=== PATIENT | male | born 1955 | race Caucasian/White ===

== ENCOUNTER 2020-11-14 16:46 | Emergency (ER) | payer MEDICARE, OTHER, SELFPAY ==
[2020-11-14 16:58] VITALS: BP 157/71; PULSE 72; RESP 18; TEMP 36.6; O2SAT 98
--- NOTE | 2020-11-14 16:59 | ED.URI ---
HPI - URI/Sore Throat General Chief Complaint: Upper Respiratory Infection Stated Complaint: Sore Throat,Diarrhea,Upset Stomach Time Seen by Provider: 11/14/20 17:00 Source: patient Mode of arrival: ambulatory Limitations: no limitations History of Present Illness HPI Narrative: Boyd Kendall is a 65 yo male with a PMH of hypertension, high cholesterol, depression and anxiety. GERD, Diabetes, who [facility] because of abdominal upset, diarrhea, sore throat this been lasting for a month he also stated that his grandchildren just were quarantine out of school because of Covid and they tested negative but he is not sure what the PCR rapid and is concerned about his cluster symptoms. Patient takes a lot of medication for variety of illnesses, including hypertension high cholesterol depression anxiety GERD diabetes, he takes his medication regularly but must establish with new PCP has he moved here recently. Patient completed the Moderna Covid vaccine; he is concerned because his grandchildren were quarantined after exposure to Covid at school but they have tested negative and he was concerned about having Covid Related Data Home Medications Medication Instructions Recorded Confirmed citalopram 20 mg PO DAILY 11/14/20 11/14/20 fenofibrate 160 mg PO DAILY 11/14/20 11/14/20 lansoprazole 303 mg PO DAILY 11/14/20 11/14/20 losartan 100 mg PO DAILY 11/14/20 11/14/20 niacin [Niaspan Extended-Release] 750 mg PO DAILY 11/14/20 11/14/20 potassium citrate 15 meq PO DAILY 11/14/20 11/14/20 rosuvastatin 10 mg PO DAILY 11/14/20 11/14/20 saxagliptin-metformin [Kombiglyze 1 tablet PO DAILY 11/14/20 11/14/20 XR] triamcinolone acetonide 1 applic DENTAL AC 11/14/20 11/14/20 Allergies Allergy/AdvReac Type Severity Reaction Status Date / Time No Known Allergies Allergy Verified 11/14/20 17:03 Review of Systems Review of Systems: CONSTITUTIONAL: Denies fever, chills, sweats. EYES: Denies visual changes, redness, discharge. ENT: Denies rhinorrhea, congestion, sore throat on and off for a month, otalgia. CARDIOVASCULAR: Denies chest pain, palpitations, edema. RESPIRATORY: Denies dyspnea, wheezing, cough GASTROINTESTINAL: Has abdominal pain, nausea, vomiting, has some diarrhea. Ongoing for a month GENITOURINARY: Denies dysuria, hematuria, abnormal discharge SKIN: Denies rash or itching. NEUROLOGIC: Denies numbness, or focal weakness. PSYCHIATRIC: Denies anxiety or depression. [facility] Past Medical History Medical History Diabetes DISH (diffuse idiopathic skeletal hyperostosis) GERD (gastroesophageal reflux disease) High cholesterol Hypertension Family History Family History (Updated 11/14/20 @ 17:24 by Sheila Valentin CNP) Other Hypertension Social History Social History (Updated 11/14/20 @ 17:24 by Sheila Valentin CNP) Smoking status: Former smoker Alcohol intake: current Comments At time of signature, I agree with nursing past medical, surgical, social and family history. There is no relevant family history pertinent to the presenting complaint. Exam Narrative: GENERAL: This is a well-nourished, well-developed patient, in no distress. Frail HEAD: normocephalic, atraumatic. EYES: Sclera clear/white. Vision is grossly intact. EARS: External ears normal, auditory canals clear and without drainage, TMs normal without perforation. Hearing grossly intact. NOSE: External nose normal without nasal discharge, nares without redness, no rhinorrhea. THROAT: Mucous membranes moist, posterior pharynx mild erythema NECK: Neck supple, non-tender CARDIOVASCULAR: Regular rate and rhythm without murmurs, gallops, or rubs. RESPIRATORY: Clear to auscultation. Breath sounds equal bilaterally. No wheezes, rales, or rhonchi. GASTROINTESTINAL: Abdomen soft, SKIN: warm, intact with no suspicious lesions or rash, good texture and turgor. NEURO: awake, alert, and oriented to pe
[2020-11-16 03:45] LABS: SARS-CoV-2 RNA PCR Negative
== END 2020-11-14 17:50 | disposition home or self-care (01) ==
PROVIDERS: Emergency Provider Nurse Practitioner
DX: J06.9 Acute upper respiratory infection, unspecified (principal); Z20.822 Contact with and (suspected) exposure to COVID-19; E11.9 Type 2 diabetes mellitus without complications; K21.9 Gastro-esophageal reflux disease without esophagitis; E78.00 Pure hypercholesterolemia, unspecified; I10 Essential (primary) hypertension; Z87.891 Personal history of nicotine dependence; M48.10 Ankylosing hyperostosis [Forestier], site unspecified; F41.9 Anxiety disorder, unspecified; F32.9 Major depressive disorder, single episode, unspecified
CPT/HCPCS: 87081; 87426; 87880; 99213; C9803; G0463; U0003; U0005

== ENCOUNTER 2021-10-30 22:53 | Emergency (ER) | payer MEDICARE, OTHER, SELFPAY ==
--- NOTE | ~2021-10-30 | CT_ITS ---
EXAMINATION: CT brain wo con DATE: 10/31/2021 00:27 INDICATION: Head injury. TECHNIQUE: Computed tomography (CT) of the head was performed without intravenous contrast. The mA wa s adjusted according to patient size. Iterative reconstruction technique was employed. The dose-lengt h product was 681.00 mGy-cm. COMPARISON: None FINDINGS: There is no intracranial hemorrhage, acute infarction, or abnormal intracranial mass lesion . The ventricles are normal in size. The orbits are normal. There is mucosal thickening in the parana cipriano sinuses. The mastoid air cells are normal. There are changes of posterior fusion procedure involv ing the skull base of cervical spine. The orbits are normal. IMPRESSION: 1. Normal brain. Reviewed, dictated and finalized at location A. IMPRESSION: 1. Normal brain.
--- NOTE | ~2021-10-30 | CT_ITS ---
EXAMINATION: CT cervical spine wo con DATE: 10/31/2021 00:28 INDICATION: Neck pain. Neck injury. TECHNIQUE: Computed tomography (CT) of the cervical spine was performed without intravenous contrast. Automated exposure control and iterative reconstruction technique were employed. The dose-length pro duct was 469.44 mGy-cm. COMPARISON: None FINDINGS: There is 7 degrees dextrocurvature of cervical spine. There are changes of anterior fusion procedure from C4 to C7 with discectomies and healed interbody bone graft. There is an anterior plate and screws from C5 to C7. There are bulky bridging anterior osteophytes from C2 to C4. There are stella nges of posterior fusion procedure from the skull base to C6 with pedicle screws in C2 and lateral ma ss screws in C3-C6. There is ankylosis of the C0-C1 facet joints and anterior atlantoaxial joint. The re are C3 and C4 laminectomies. Intervertebral disc heights are normal. There is intermittent ossific ation of posterior longitudinal ligament in cervical spine. The following disc levels are specificall y discussed: C2-C3: There is mild left uncovertebral joint hypertrophy. There is severe right and moderate left fa cet joint hypertrophy. There is mild bilateral neural foraminal stenosis. There is mild central canal stenosis with posterior decompression. C3-C4: There is mild left uncovertebral joint hypertrophy. There is moderate bilateral facet joint hy pertrophy. There is mild bilateral neural foraminal stenosis. There is mild central canal stenosis wi th posterior decompression. C4-C5: There is mild bilateral uncovertebral joint hypertrophy. There is mild right and moderate left facet joint hypertrophy. There is mild left neural foraminal stenosis. There is no central canal alex nosis. C5-C6: There is mild bilateral uncovertebral joint hypertrophy. There is mild bilateral facet joint h ypertrophy. There is no neural foraminal stenosis. There is mild central canal stenosis. C6-C7: There is mild bilateral uncovertebral joint hypertrophy. There is mild bilateral facet joint h ypertrophy. There is no neural foraminal stenosis. There is mild central canal stenosis. C7-T1: There is mild bilateral uncovertebral joint osteoarthritis. There is moderate bilateral facet joint osteoarthritis. There is mild bilateral neural foraminal stenosis. There is mild central canal stenosis. IMPRESSION: 1. No fracture. 2. Anterior and posterior fusion from the skull base to C7. 3. Mild cervical spondylosis. Reviewed, dictated and finalized at location A.
--- NOTE | ~2021-10-30 | CT_ITS ---
EXAMINATION: CT thoracic spine wo con DATE: 10/31/2021 00:28 INDICATION: Back pain. Fall. TECHNIQUE: Computed tomography (CT) of the thoracic spine was performed without intravenous contrast. Automated exposure control and iterative reconstruction technique were employed. The dose-length pro duct was 1008.40 mGy-cm. COMPARISON: None FINDINGS: There is 3 degrees levocurvature of cervicothoracic spine. Vertebral body heights are donald l. There is mildly decreased disc height at multiple levels. There are bridging endplate osteophytes from T2 to L1, consistent with diffuse idiopathic skeletal hyperostosis (DISH). There is multilevel m ild facet joint osteoarthritis. On the right, there is mild neural foraminal stenosis at T2-T3, T8-T9 , and T11-T12. On the left, there is mild neural foraminal stenosis at T3-T4 and T5-T6 and moderate n eural foraminal stenosis at T11-T12. There is no central canal stenosis. IMPRESSION: 1. No fracture. 2. DISH. 3. Moderate left neural foraminal stenosis at T11-T12. Otherwise mild thoracic spondylosis. Reviewed, dictated and finalized at location A.
[2021-10-30 22:54] VITALS: BP 144/62; PULSE 74; RESP 16; TEMP 36.3; O2SAT 99
--- NOTE | 2021-10-31 00:10 | ED.FALL ---
HPI - Fall General Chief Complaint: Fall Stated Complaint: FALL/ BACK PAIN. Time Seen by Provider: 10/30/21 23:35 History of Present Illness HPI Narrative: 66-year-old male history of multiple neck surgeries presents emergency room complains of a head and neck pain. Patient states that he was in a rocking chair when he rocked back too far and falling out of his chair striking the back of his head and his neck. Injury occurred at approximately 2:00 this afternoon. Patient states he took a tramadol and a Flexeril at that time which alleviated his pain. Patient states that later this evening the pain returned and was worse when he was trying to move his neck. Patient denies positive LOC, altered mental status. Denies any anticoagulation therapy. Related Data Home Medications Medication Instructions Recorded Confirmed citalopram 20 mg tablet 20 mg PO DAILY 11/14/20 11/14/20 fenofibrate 160 mg tablet 160 mg PO DAILY 11/14/20 11/14/20 lansoprazole 30 mg capsule,delayed 303 mg PO DAILY 11/14/20 11/14/20 release losartan 100 mg tablet 100 mg PO DAILY 11/14/20 11/14/20 niacin 750 mg tablet,extended 750 mg PO DAILY 11/14/20 11/14/20 release 24 hr (Niaspan) potassium citrate 15 mEq (1,620 15 meq PO DAILY 11/14/20 11/14/20 mg) tablet,extended release rosuvastatin 10 mg tablet 10 mg PO DAILY 11/14/20 11/14/20 saxagliptin 5 mg-metformin ER 1 tablet PO DAILY 11/14/20 11/14/20 1,000 mg tablet,extend release 24hr mp (Kombiglyze XR) triamcinolone acetonide 0.1 % 1 applic dental AC 11/14/20 11/14/20 dental paste Allergies Allergy/AdvReac Type Severity Reaction Status Date / Time No Known Allergies Allergy Verified 10/31/21 00:49 Review of Systems Review of Systems: CONSTITUTIONAL: Denies fever, chills, or sweats. EYES: Denies visual changes, redness, or discharge. ENT: Denies rhinorrhea, congestion, sore throat, or otalgia. CARDIOVASCULAR: Denies chest pain, palpitations, or edema. RESPIRATORY: Denies cough or dyspnea. GASTROINTESTINAL: Denies abdominal pain, nausea, vomiting, or diarrhea. GENITOURINARY: Denies dysuria or hematuria. SKIN: Denies rash or itching. MUSCULOSKELETAL: Reports neck and mid thoracic back pain NEUROLOGIC: Reports headache PSYCHIATRIC: Denies anxiety or depression. [facility] Past Medical History Medical History Diabetes DISH (diffuse idiopathic skeletal hyperostosis) GERD (gastroesophageal reflux disease) High cholesterol Hypertension Family History Family History Other Hypertension Social History Social History Smoking status: Former smoker Alcohol intake: current Exam Narrative: GENERAL: Well-appearing, well-nourished, no physical limitations, and in no acute distress. HEAD: Normocephalic, atraumatic. EYES: Conjunctivae normal, PERRLA and EOMI. NECK: Supple. No adenopathy or masses. CHEST: Clear to auscultation. No respiratory distress. No wheezes rales or rhonchi. No tenderness. HEART: Regular rate and rhythm. No murmur heard. Normal peripheral pulses. BACK: Midline cervical and thoracic tenderness, no step-offs, no bony abnormality; c-collar in place EXTREMITIES: Normal range of motion. No edema. No clubbing or cyanosis SKIN: Warm, dry, no rash. No noted wounds NEURO: No focal deficits. Alert and oriented x3. MAEW. CN's II-XI intact bilaterally. strength BUE 5/5, no weakness, no parasthesias PSYCH: Cooperative. Normal mood and affect. Course Course Emergency Course: 0145: c-collar cleared. Patient reports discomfort, but with some improvement, with rotation and lateral bend of c-spine. Vital Signs Vital signs: Vital Signs Temperature 36.3 C L 10/30/21 22:54 Pulse Rate 74 10/30/21 22:54 Respiratory Rate 16 10/30/21 22:54 Blood Pressure 144/62 H 10/30/21 22:54 Pulse Oximetry 99 08
[2021-10-31 00:47] VITALS: BP 128/76; PULSE 66; RESP 17; O2SAT 96
[2021-10-31] MEDS: CYCLOBENZAPRINE HCL 10 MG TABLET PO (01:48)
== END 2021-10-31 01:56 | disposition home or self-care (01) ==
PROVIDERS: Emergency Provider Nurse Practitioner Family
DX: S09.90XA Unspecified injury of head, initial encounter (principal); S16.1XXA Strain of muscle, fascia and tendon at neck level, initial encounter; S29.012A Strain of muscle and tendon of back wall of thorax, initial encounter; W07.XXXA Fall from chair, initial encounter; E11.9 Type 2 diabetes mellitus without complications; I10 Essential (primary) hypertension; E78.00 Pure hypercholesterolemia, unspecified; K21.9 Gastro-esophageal reflux disease without esophagitis; M48.10 Ankylosing hyperostosis [Forestier], site unspecified; Z87.891 Personal history of nicotine dependence; Z79.84 Long term (current) use of oral hypoglycemic drugs
CPT/HCPCS: 70450; 72125; 72128; 99284; A9270; L0140

== ENCOUNTER 2023-01-20 10:22 | Emergency (ER) | payer MEDICARE, OTHER, SELFPAY ==
--- NOTE | ~2023-01-20 | XR_ITS ---
EXAMINATION: XR chest 2V DATE: 01/20/2023 10:47 INDICATION: Cough 2 weeks post COVID TECHNIQUE: PA and lateral views of the chest were obtained. COMPARISON: None FINDINGS: Calcified nodule in the lateral left lower lung zone consistent with old granulomatous disease. No ot her airspace opacities, pulmonary edema, pleural effusion or pneumothorax. The cardiomediastinal silh ouette is normal. There are bridging osteophytes at multiple levels consistent with diffuse idiopathi c skeletal hyperostosis (DISH). IMPRESSION: 1. No acute cardiopulmonary disease. Reviewed, dictated and finalized at location A. [employer]
--- NOTE | 2023-01-20 10:31 | ED.URI ---
HPI - URI/Sore Throat General Chief Complaint: Upper Respiratory Infection Stated Complaint: + covid home test Time Seen by Provider: 01/20/23 10:36 Source: patient, RN notes reviewed and old records reviewed Mode of arrival: ambulatory Limitations: no limitations History of Present Illness HPI Narrative: 67-year-old male presents to the [facility] with continued cough post COVID. States that he tested positive 2 weeks ago, treated with Paxlovid. States that he still testing positive and concern for his cough. Related Data Home Medications Medication Instructions Recorded Confirmed citalopram 20 mg tablet 20 mg PO DAILY 11/14/20 01/20/23 fenofibrate 160 mg tablet 160 mg PO DAILY 11/14/20 01/20/23 lansoprazole 30 mg capsule,delayed 303 mg PO DAILY 11/14/20 01/20/23 release losartan 100 mg tablet 100 mg PO DAILY 11/14/20 01/20/23 niacin 750 mg tablet,extended 750 mg PO DAILY 11/14/20 01/20/23 release 24 hr (Niaspan) potassium citrate 15 mEq (1,620 15 meq PO DAILY 11/14/20 01/20/23 mg) tablet,extended release rosuvastatin 10 mg tablet 10 mg PO DAILY 11/14/20 01/20/23 saxagliptin 5 mg-metformin ER 1 tablet PO DAILY 11/14/20 01/20/23 1,000 mg tablet,extend release 24hr mp (Kombiglyze XR) triamcinolone acetonide 0.1 % 1 applic dental AC 11/14/20 01/20/23 dental paste Allergies Allergy/AdvReac Type Severity Reaction Status Date / Time No Known Allergies Allergy Verified 01/20/23 10:43 Review of Systems Review of Systems: All systems reviewed & are unremarkable except as noted in HPI and below Constitutional: Constitutional: Reports no additional constitutional complaints Eyes: Eyes: Reports no additional eye complaints ENT: Reports system reviewed and no additional complaints, except as documented Cardiovascular: Cardiovascular: Reports no additional cardiovascular complaints, Denies chest pain and Denies dyspnea Respiratory: Respiratory: Reports as per HPI, Denies chest congestion, Reports cough and Denies dyspnea Gastrointestinal: Gastrointestinal: Reports no additional gastrointestinal complaints, Denies abdominal pain, Denies nausea and Denies vomiting Musculoskeletal: Musculoskeletal: Reports no additional musculoskeletal complaints Integumentary/Breasts: Skin/Breast: Reports system reviewed and no additional complaints, except as docu Neurologic: Reports system reviewed and no additional complaints, except as documented Psychiatric: Psychiatric: Reports no additional psychiatric complaints Allergic/Immunologic: Allergic/Immunologic: Reports no additional allergic/immunologic complaints PMFSH Past Medical History Medical History Diabetes DISH (diffuse idiopathic skeletal hyperostosis) GERD (gastroesophageal reflux disease) High cholesterol Hypertension Family History Family History Other Hypertension Social History Social History Smoking status: Former smoker Alcohol intake: current Comments At the time of my signature, I reviewed and agree with the nursing past medical, surgical, social, and family history. There is no relevant family history pertinent to the patient complaint. Exam Const: General: cooperative, healthy appearing, comfortable, no acute distress, well developed, alert and well nourished Nutritional Appearance: well nourished Orientation/consciousness: patient oriented x3 Limitations: no limitations HENMT: Head: normal to inspection Ears: hearing grossly normal bilaterally, external ears normal, TM's normal bilaterally, EAC's normal, mastoids normal and no periauricular adenopathy Face/Nose/Sinus: Normal external nose present, Normal nares present, Normal nasal mucous membranes and turbinates present, normal facial exam and face symmetric Face and sinus: normal facial exam and face symmetric M
[2023-01-20 10:35] VITALS: BP 138/77; PULSE 96; RESP 20; TEMP 36.7; O2SAT 97
== END 2023-01-20 11:10 | disposition home or self-care (01) ==
PROVIDERS: Emergency Provider Nurse Practitioner
DX: U07.1 COVID-19 (principal); J40 Bronchitis, not specified as acute or chronic; Z87.891 Personal history of nicotine dependence; E11.9 Type 2 diabetes mellitus without complications; K21.9 Gastro-esophageal reflux disease without esophagitis; E78.00 Pure hypercholesterolemia, unspecified; I10 Essential (primary) hypertension
CPT/HCPCS: 71046; 99213; G0463

== ENCOUNTER 2023-10-07 09:05 | Emergency (ER) | payer MEDICARE, BC, SELFPAY ==
--- NOTE | 2023-10-07 09:19 | ED.GENADULT ---
HPI - General Adult General Chief complaint: Upper Respiratory Infection Stated complaint: cold symptoms Time Seen by Provider: 10/07/23 09:19 Source: patient Mode of arrival: ambulatory Limitations: no limitations History of Present Illness HPI narrative: 68-year-old male patient presents to the [facility] with complaints of cold symptoms. Patient states that he has been dealing with some allergy symptoms off and on for the last couple of weeks but the symptoms he is coming in with today started about 2-3 days ago. Patient states he does not know if he has been running a fever cause he does not have a thermometer at home but states he does feel feverish. Denies any chills but states he has been just feeling very run down and fatigued. Patient states he has had congestion and runny nose, a sore throat that started yesterday. Patient denies any coughing, chest pain or shortness of breath. Denies any ear pain. Patient denies any abdominal pain but states he has felt nauseated. Denies any vomiting or diarrhea. Related Data Home Medications Medication Instructions Recorded Confirmed citalopram 20 mg tablet 20 mg PO DAILY 11/14/20 10/07/23 fenofibrate 160 mg tablet 160 mg PO DAILY 11/14/20 10/07/23 lansoprazole 30 mg capsule,delayed 303 mg PO DAILY 11/14/20 10/07/23 release niacin 750 mg tablet,extended 750 mg PO DAILY 11/14/20 10/07/23 release 24 hr (Niaspan) potassium citrate 15 mEq (1,620 15 meq PO DAILY 11/14/20 10/07/23 mg) tablet,extended release rosuvastatin 10 mg tablet 10 mg PO DAILY 11/14/20 10/07/23 saxagliptin 5 mg-metformin ER 1 tablet PO DAILY 11/14/20 10/07/23 1,000 mg tablet,extend release 24hr mp (Kombiglyze XR) losartan 100 mg tablet 100 mg PO DAILY 10/07/23 10/07/23 methocarbamol 500 mg tablet 500 mg PO PRN PRN Muscle Pain 10/07/23 10/07/23 mometasone-formoterol HFA 200 1 inh inhalation DAILY 10/07/23 10/07/23 mcg-5 mcg/actuation aerosol inhaler (Dulera) semaglutide 2 mg/dose (8 mg/3 mL) 2 mg subcut WEEKLY 10/07/23 10/07/23 subcutaneous pen injector (Ozempic) Allergies Allergy/AdvReac Type Severity Reaction Status Date / Time No Known Allergies Allergy Verified 10/07/23 09:19 Review of Systems Review of Systems: CONSTITUTIONAL: Positive fever, chills, or sweats. positive fatigue EYES: Denies visual changes, redness, or discharge. ENT: positive rhinorrhea, congestion, sore throat, denies otalgia. CARDIOVASCULAR: Denies chest pain, palpitations, or edema. RESPIRATORY: Denies cough or dyspnea. GASTROINTESTINAL: Denies abdominal pain, nausea, vomiting, or diarrhea. GENITOURINARY: Denies dysuria or hematuria. SKIN: Denies rash or itching. MUSCULOSKELETAL: Denies back pain, joint pain, or myalgia. NEUROLOGIC: Denies headache, numbness, or weakness. PSYCHIATRIC: Denies anxiety or depression. [facility] Past Medical History Medical History Diabetes DISH (diffuse idiopathic skeletal hyperostosis) GERD (gastroesophageal reflux disease) High cholesterol Hypertension Family History Family History Other Hypertension Social History Social History Smoking status: Former smoker Alcohol intake: current Comments At the time of my signature I agree with nursing past medical history, surgical, social, and family history. There is no relevant family history pertinent to the presenting complaint. Exam Narrative: GENERAL: Well-appearing, well-nourished, and in no acute distress. HEAD: Normocephalic, atraumatic. EYES: PERRLA and EOMI. ENT: Nares clear, no rhinorrhea or epistaxis. Mucous membranes moist. posterior pharynx with some erythema present but no tonsillar enlargement, no exudates or lesions present. Bilateral TMs are clear no erythema or foreign bodies the canal. NECK: Supple. No lymphadenopathy CHES
[2023-10-07 09:25] VITALS: BP 138/86; PULSE 96; RESP 16; TEMP 36.6; O2SAT 100
[2023-10-07 09:48] LABS: EDSTREPNEGPOS1 Presumptive Negative
[2023-10-07 09:53] LABS: EDINFLUASCREEN Negative; EDINFLUBSCREEN Negative
== END 2023-10-07 10:11 | disposition home or self-care (01) ==
PROVIDERS: Emergency Provider Nurse Practitioner Family
DX: J06.9 Acute upper respiratory infection, unspecified (principal); Z20.822 Contact with and (suspected) exposure to COVID-19; Z87.891 Personal history of nicotine dependence; E11.9 Type 2 diabetes mellitus without complications; M48.10 Ankylosing hyperostosis [Forestier], site unspecified; K21.9 Gastro-esophageal reflux disease without esophagitis; E78.00 Pure hypercholesterolemia, unspecified; I10 Essential (primary) hypertension
CPT/HCPCS: 87081; 87426; 87804; 87880; 99213; G0463

== ENCOUNTER 2024-02-02 09:25 | Inpatient (IN) | payer MEDICARE, BC, SELFPAY ==
[2024-02-02] VITALS (12 sets, daily range): BP systolic 133–190; BP diastolic 70–102; PULSE 65–129; RESP 12–29; TEMP 36.6–37.9; O2SAT 94–100; BMI 27.6
--- NOTE | ~2024-02-02 | XR_ITS ---
EXAMINATION: XR chest 1V DATE: 02/02/2024 11:11 INDICATION: Altered mental status. Diaphragmatic. TECHNIQUE: frontal view of the chest was obtained. COMPARISON: Chest radiograph dated 01/20/2023 FINDINGS: Couple calcified nodules at the lateral left lower lung zone consistent with old granulomatous diseas e. No new airspace opacities, pulmonary edema, pleural effusion or pneumothorax. Heart size is normal . Instrumentation for combined anterior and posterior spinal fusion at the visualized lower cervical spine. IMPRESSION: 1. No acute cardiopulmonary disease. Reviewed, dictated and finalized at location B. 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
--- NOTE | ~2024-02-02 | CT_ITS ---
CLINICAL INDICATION: Altered mental status and fever COMPARISON: None. TECHNIQUE: Multiple contiguous axial images of the abdomen and pelvis were performed following the ad ministration of with 100 mL Omnipaque-350 intravenous contrast The dose-length product (DLP) was 1076.14 mGy-cm. Automated exposure control and iterative reconstruction technique were employed. FINDINGS/OBSERVATIONS: Visualized lower thorax: Bibasilar atelectasis. The heart is enlarged, without pericardial effusion. Small hiatal hernia is present. Liver: Liver enhances homogeneously and is enlarged measuring 20 cm in longitudinal dimension Gallbladder and biliary system: The gallbladder is only minimally distended, and otherwise unremarkable. Pancreas: The pancreas enhances homogeneously without ductal dilatation. Spleen: The spleen enhances homogeneously and is not enlarged measuring 9 mm cm in longitudinal dimension. Kidneys: Subcentimeter foci of decreased attenuation are identified within the bilateral kidneys, statisticall y representing cysts but too small to characterize. Adrenal glands: Unremarkable. Gastrointestinal tract: Colonic diverticulosis without surrounding inflammatory change. Mural thickening within the transverse colon, with additional findings of decreased attenuation sugge sting wall edema. No cross-sectional imaging evidence to suggest the presence of GI hemorrhage. Appendix: The air-filled appendix is of normal caliber (axial series, images 165-182). Vasculature: Calcified atherosclerotic disease without aneurysmal dilatation. The inferior vena cava is decompressed suggesting hypovolemia. Lymph nodes: No pathologically enlarged or morphologically suspicious lymph nodes within the retroperitoneum or at the root of the mesentery. Pelvic structures: The bladder is decompressed with a Saini catheter. The prostate gland is not enlarged. Body wall and musculoskeletal: Moderate degenerative disease within the lumbosacral spine with osteophyte formation, disc space narr owing, endplate changes and facet arthropathy. Fixation hardware at the level of L4/L5. IMPRESSION: No acute intra-abdominal pathology, as detailed above. Reviewed, dictated and finalized at location A. ECTOR ASSEMBLY
--- NOTE | ~2024-02-02 | CT_ITS ---
EXAMINATION: CT brain wo con DATE: 02/02/2024 11:08 INDICATION: Altered mental status TECHNIQUE: Computed tomography (CT) of the head was performed without intravenous contrast. Sagittal and coronal reconstructions were performed. The mA was adjusted according to patient size. Iterative reconstruction technique was employed. The dose-length product was 681.00 mGy-cm. COMPARISON: head CT dated 10/31/21 FINDINGS: No acute intracranial hemorrhage, acute infarction or abnormal extra axial fluid collection. Ventricl es are normal and symmetric. No mass/mass effect. Scattered mucoperiosteal thickening the paranasal s inuses. The orbits and mastoid air cells are normal. Instrumentation along the midline of the occiput for a posterior cervical and cervical occipital posterior spinal fusion which on prior cervical spin e CT extends to C6. IMPRESSION: 1. Normal brain. Reviewed, dictated and finalized at location B. INE STRAP BUCKLER IMPRESSION: 1. Normal brain.
--- NOTE | 2024-02-02 09:55 | ECG_ITS ---
Test Date: 2024-02-02 10:01:22 Measurements Intervals [place] Rate: 101 P: 54 DC: 207 QRS: 2 QRSD: 82 T: 66 QT: 331 QTc: 431 Interpretive Statements SINUS TACHYCARDIA NONSPECIFIC T-WAVE ABNORMALITY- HIGH LATERAL LEADS BASELINE ARTIFACT- I, II, III, AVR, AVL, AVF, V1, V5-V6 BORDERLINE ECG No previous ECG available for comparison Electronically Signed On 02-02-2024 10:04:20 [employer]ARN REWINDER by Joce Romeo D.O.
[2024-02-02 09:57] LABS: Glucose Point of Care 383 mg/dl (65-105)
[2024-02-02] MEDS: diazePAM INJ (*CRX) 10 MG/2 ML SYRINGE 5 MG IM (10:10)
[2024-02-02] MEDS: SODIUM CHLORIDE 0.9% IV 2,500 ML 999 ML IV CONT (10:11)
[2024-02-02 10:12] LABS: Basophils Percent Auto 0.2 % (0.2-1.2); Eosinophils Percent Auto 0.1 % (0-4.4); Hematocrit 46.3 % (42.0-52.0); Hemoglobin 16.3 g/dL (14.0-18.0); Immature Granulocyte Absolute 0.08 K/mm3 (0.00-0.031); Immature Granulocyte Percent A 0.7 % (0-0.5); Lymphocytes Absolute Auto 1.39 K/mm3 (0.9-3.2); Lymphocytes Percent Auto 12.2 % (18.3-44.2); Mean Corpuscular HGB Conc 35.2 g/dl (32-36); Mean Corpuscular Hemoglobin 29.8 pg (26-34); Mean Corpuscular Volume 84.6 fl (80-100); Mean Platelet Volume 9.1 fl (7.4-10.4); Monocytes Absolute Auto 1.1 K/mm3 (0.1-0.6); Monocytes Percent Auto 9.7 % (2.6-8.5); Neutrophils Absolute Auto 8.8 K/mm3 (1.3-6.7); Neutrophils Percent Auto 77.1 % (45.5-73.1); Platelet Count Result 237 k/mm3 (150-375); Red Blood Count 5.47 M/mm3 (4.6-6.20); Red Cell Distribution Width 13.2 % (11.5-14.5); White Blood Count 11.4 K/mm3 (4.5-10.0)
[2024-02-02 10:26] LABS: Alveolar/Arterial O2 Gradient 35.6 mmHg; Base Excess ABG -2.1 mEq/l (+/-2.0); Fractional Inspired Oxygen 21 %; HCO3 ABG 21.9 mEq/l (22.0-26.0); Oxygen Content ABG 20.6 %vol (16.0-22.0); Oxygen Saturation ABG 94.7 % (95.0-100.0); Oxyhemoglobin 93.2 % THb (90.0-100.0); PCO2 ABG 35.5 mmHg (35.0-45.0); PO2 ABG 71.6 mmHg (80.0-100.0); PO2 FiO2 Ratio Arterial Blood 3.41 %; Total Hemoglobin 15.7 g/dL (12.0-18.0); pH ABG 7.408 (7.350-7.450)
[2024-02-02 10:27] LABS: Device ROOM AIR; Modified Allen's Test Pass; Site Drawn LEFT RADIAL
[2024-02-02 10:31] LABS: Acetaminophen < 10 ug/mL (10-30); Ethanol < 10 mg/dL (<10); Partial Thromboplastin Time 22.2 Seconds (22.3-36.8)
[2024-02-02 10:33] LABS: Alanine Aminotransferase 25 U/L (6-50); Albumin Level 4.8 g/dL (3.5-5.1); Alkaline Phosphatase 39 U/L (38-126); Anion Gap 14 mmol/L (4-12); Aspartate Amino Transferase 30 U/L (17-59); Bilirubin,Total 1.1 mg/dL (0.2-1.3); Blood Urea Nitrogen 20 mg/dL (9-20); Calcium 9.6 mg/dL (8.4-10.2); Carbon Dioxide 20 mmol/L (22-30); Chloride 100 mmol/L (98-107); Creatine Kinase 145 U/L (55-170); Estimated Glomerular Filt Rate > 60; Glucose 374 mg/dL (65-110); Lipase 66 U/L (23-300); Magnesium 1.7 mg/dL (1.6-2.3); Phosphorus 3.7 mg/dL (2.5-4.5); Sodium 134 mmol/L (137-145)
[2024-02-02 10:44] LABS: NT Pro B Type Natriuretic Pept 100 pg/mL (19.9-100); Troponin I < 0.012 ng/mL (0.000-0.034)
[2024-02-02 10:58] LABS: Add Urine Microscopic? YES; Appearance Urine Clear (Clear); Bacteria Urine None Seen /hpf; Bilirubin Urine Negative (Negative); Blood Urine Negative (Negative); Color Urine Yellow (Yellow); Glucose Urine UA 3+ mg/dL (Negative); Hyaline Casts Urine Present /lpf; Ketones Urine Negative (Negative); Leukocyte Esterase Ur Negative LEU/UL (Negative); Need Manual Microscopic Reviewed; Nitrate Urine Negative (Negative); Protein Urine 1+ mg/dL (Negative); Specific Grav Ur 1.031 (1.001-1.035); Squamous Epithelial Cell Urine None Seen /hpf (Few); WBC Urine 0-5 /hpf (0-3); pH Urine 6.5 (5.0-9.0)
[2024-02-02 11:28] LABS: Influenza A QL RT-PCR Negative (Negative); Influenza B QL RT-PCR Negative (Negative); RSV RNA, RT-PCR Negative (Negative); SARS-CoV-2 RNA PCR Negative (Negative)
[2024-02-02 12:13] LABS: Amphetamine Screen Urine Negative (Negative); Barbiturate Screen Urine Negative (Negative); Benzodiazepines Screen Urine Negative (Negative); Cannabinoid Screen Urine Negative (Negative); Cocaine Screen Urine Negative (Negative); Methadone Screen Urine Negative (Negative); Opiate Screen Urine Negative (Negative); Phencyclidine Screen Urine Negative (Negative)
[2024-02-02 12:23] LABS: Lactic Acid Reflex 1.9 mmol/L (0.7-2.0)
--- NOTE | 2024-02-02 12:34 | ED_ITS ---
HPI - General Adult General Chief complaint: Altered Mental Status Stated complaint: mental breakdown Time Seen by Provider: 02/02/24 09:37 History of Present Illness HPI narrative: This is a 68-year-old male presenting ED with chief complaint of altered mental status. Per the patient his family he has been having a decline since summer. He had a close friend pass away and his depression has gotten worse. However has gotten significantly worse in the last several weeks. It culminated in a fight when he became very upset with her White accusing her of an affair over 30 years ago. Started making threats to people and grabbed his 's arm. The family removed his car keys as he was threatening to leave. They then brought him to the ED for evaluation. At this time the patient's says that he is very depressed. He is suicidal or homicidal. He does not have access to a firearm at home. he said that he feels warm and has been sweating but denies chest pain difficulty breathing abdominal pain or urinary symptoms. Patient has recently been started on steroids for severe arthritis. His says that in the past when he has been on steroids it makes him very grouchy. Patient also has a strong family history of Lewy body dementia. Patient also took a tramadol last night. Patient has only taken tramadol 1 time prior and on that episode he hallucinations. Related Data Home Medications Medication Instructions Recorded Confirmed citalopram 20 mg tablet 20 mg PO DAILY 11/14/20 02/02/24 fenofibrate 160 mg tablet 160 mg PO DAILY 11/14/20 02/02/24 lansoprazole 30 mg capsule,delayed 303 mg PO DAILY 11/14/20 02/02/24 release niacin 750 mg tablet,extended 750 mg PO DAILY 11/14/20 02/02/24 release 24 hr (Niaspan) potassium citrate 15 mEq (1,620 15 meq PO DAILY 11/14/20 02/02/24 mg) tablet,extended release rosuvastatin 10 mg tablet 10 mg PO DAILY 11/14/20 02/02/24 saxagliptin 5 mg-metformin ER 1 tablet PO DAILY 11/14/20 02/02/24 1,000 mg tablet,extend release 24hr mp (Kombiglyze XR) losartan 100 mg tablet 100 mg PO DAILY 10/07/23 02/02/24 glimepiride 4 mg tablet 4 mg PO DAILY 02/02/24 02/02/24 prednisone 20 mg tablet 20 mg PO DAILY 02/02/24 02/02/24 Allergies Allergy/AdvReac Type Severity Reaction Status Date / Time No Known Allergies Allergy Verified 02/02/24 09:52 [facility] Past Medical History Medical History Diabetes DISH (diffuse idiopathic skeletal hyperostosis) GERD (gastroesophageal reflux disease) High cholesterol Hypertension Family History Family History Other Hypertension Social History Social History Smoking status: Former smoker Alcohol intake: current Exam Narrative: APPEARANCE: patient appears uncomfortable Head: atraumatic. EYES: EOMI, No nystagmus at rest NOSE: Atraumatic NECK: Neck is completely fused with no movement RESPIRATORY: No increased rate of breathing clear to auscultation CARDIOVASCULAR: tachycardic, diaphoretic ABDOMINAL: Non-distended soft nontender no guarding rebound MUSCULOSKELETAl: No obvious deformities NEURO: Alert. Cranial nerves 2-12 grossly intact. Sensation light touch, motor function cerebellar function intact for 4 extremities. no inducible clonus. SKIN:: Warm, dry. Normal color PSYCHIATRIC: Normal affect Course Vital Signs Vital signs: Vital Signs Pulse Rate 129 H 02/02/24 09:33 Respiratory Rate 29 H 02/02/24 09:33 Blood Pressure 144/101 H 02/02/24 09:33 Pulse Oximetry 100 02/02/24 09:33 Temperature 98.1 F 02/02/24 11:15 Pulse Rate 87 02/02/24 11:15 Respiratory Rate 15 02/02/24 11:15 Blood Pressure 163/75 H 02/02/24 11:15 Pulse Oximetry 97 02/02/24 11:15 Oxygen Delivery Room Air 02/02/24 09:34 Medical Decision Making [facility] Narrative Medical decision making narrative: -Course: 68-year-old male presenting with altered mental status aggressive behavior. On arrival he was tachycardic and diaphoretic. Family's concern about a psychotic break but given his clinical appearance I'm evaluating him for metabolic/ infectious/toxic causes of encephalopathy. Workup is largely unremarkable. Patient has multiple reasons for agitation including recent steroid use, hallucinogenic reaction to tramadol, strong fam hx of lewy body dementia, and depression. 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 Discussed the results with the family and the patient will be admitted the h ospital for further evaluation. -DDX includes but is not limited to: Lewy body dementia, steroid psychosis, tramadol reaction, Depression with psychotic features, adjustment disorder, delirium infection -Shared decision making / Disposition: admitted Vital Signs Vital Signs: Vital Signs Pulse Rate 129 H 02/02/24 09:33 Respiratory Rate 29 H 02/02/24 09:33 Blood Pressure 144/101 H 02/02/24 09:33 Pulse Oximetry 100 02/02/24 09:33 Temperature 98.1 F 02/02/24 11:15 Pulse Rate 87 02/02/24 11:15 Respiratory Rate 15 02/02/24 11:15 Blood Pressure 163/75 H 02/02/24 11:15 Pulse Oximetry 97 02/02/24 11:15 Oxygen Delivery Room Air 02/02/24 09:34 Lab Data 02/02/24 10:06 02/02/24 10:06 Labs: Lab Results 02/02/24 02/02/24 02/02/24 Range/Units 09:54 10:06 10:29 WBC 11.4 H (4.5-10.0) K/mm3 RBC 5.47 (4.6-6.20) M/mm3 Hgb 16.3 (14.0-18.0) g/dL Hct 46.3 (42.0-52.0) % MCV 84.6 (80-100) fl MCH 29.8 (26-34) pg MCHC 35.2 (32-36) g/dl RDW 13.2 (11.5-14.5) % Plt Count 237 (150-375) k/mm3 MPV 9.1 (7.4-10.4) fl Immature Gran % (Auto) 0.7 H (0-0.5) % Neut % (Auto) 77.1 H (45.5-73.1) % Lymph % (Auto) 12.2 L (18.3-44.2) % [place] % (Auto) 9.7 H (2.6-8.5) % Eos % (Auto) 0.1 (0-4.4) % Baso % (Auto) 0.2 (0.2-1.2) % Lymph # (Auto) 1.39 (0.9-3.2) K/mm3 [place] # (Auto) 1.1 H (0.1-0.6) K/mm3 Eos # (Auto) 0.0 (0-0.3) K/mm3 Baso # (Auto) 0.0 (0.0-0.1) K/mm3 Abs Immat Gran (auto) 0.08 H (0.00-0.031) K/mm3 Absolute Neuts (auto) 8.8 H (1.3-6.7) K/mm3 Absolute Nucleated RBC 0.000 (0.0-0.012) K/mm3 Nucleated RBC % 0.0 (0.0-0.2) % PT 14.0 (11.1-14.7) Seconds INR 1.0 APTT 22.2 L (22.3-36.8) Seconds Sodium 134 L (137-145) mmol/L Potassium 4.0 (3.4-5.0) mmol/L Chloride 100 (98-107) mmol/L Carbon Dioxide 20 L (22-30) mmol/L Anion Gap 14 H (4-12) mmol/L BUN 20 (9-20) mg/dL Creatinine 1.00 (0.7-1.3) mg/dL Estim Creat Clear Calc Not Reportable Estimated GFR > 60 (59 - ) Glucose 374 H (65-110) mg/dL POC Capillary Glucose 383 H (65-105) mg/dl Lactic Acid (0.7-2.0) mmol/L Calcium 9.6 (8.4-10.2) mg/dL Phosphorus 3.7 (2.5-4.5) mg/dL Magnesium 1.7 (1.6-2.3) mg/dL Total Bilirubin 1.1 (0.2-1.3) mg/dL AST 30 (17-59) U/L ALT 25 (6-50) U/L Alkaline Phosphatase 39 (38-126) U/L Total Creatine Kinase 145 (55-170) U/L Troponin I < 0.012 (0.000-0.034) ng/mL NT-Pro-B Natriuret Pep 100 (19.9-100) pg/mL Total Protein 8.0 (6.3-8.2) g/dL Albumin 4.8 (3.5-5.1) g/dL Lipase 66 (23-300) U/L TSH (Reflex) 1.850 (0.465-4.68) uIU/mL Urine Color Yellow (Yellow) Urine Appearance Clear (Clear) Urine pH 6.5 (5.0-9.0) Ur Specific [place] 1.031 (1.001-1.035) Urine Protein 1+ H (Negative) mg/dL Urine Glucose (UA) 3+ H (Negative) mg/dL Urine Ketones Negative (Negative) mg/dL Ur Blood (Man) Negative (Negative) Urine Nitrate Negative (Negative) Urine Bilirubin Negative (Negative) Urine Urobilinogen 1.0 (<2.0) mg/dL Add Ur Microanalysis Reviewed Leukocyte Esterase Rfl Negative (Negative) RONALD/UL Urine RBC 3-5 H (0-2) /hpf Urine WBC 0-5 (0-3) /hpf Ur Squamous Epith Cells None seen (Few) /hpf Urine Bacteria None seen /hpf Urine Casts 6-10 Hyaline Casts Present (None) /lpf Urine Opiates Screen Negative (Negative) Urine Methadone Screen Negative (Negative) Acetaminophen < 10 L (10-30) ug/mL Ur Barbiturates Screen Negative (Negative) Ur Phencyclidine Scrn Negative (Negative) Ur Amphetamine Screen Negative (Negative) U Benzodiazepines Scrn Negative (Negative) Urine Cocaine Screen Negative (Negative) U Cannabinoids Screen Negative (Negative) Ethyl Alcohol < 10 (<10) mg/dL Influenza A (RT-PCR) Negative (Negative) Influenza B (RT-PCR) Negative (Negative) RSV (RT-PCR) Negative (Negative) SARS-CoV-2 RNA (RT-PCR) Negative (Negative) 02/02/24 Range/Units 12:04 WBC (4.5-10.0) K/mm3 RBC (4.6-6.20) M/mm3 Hgb (14.0-18.0) g/dL Hct (42.0-52.0) % MCV (80-100) fl MCH (26-34) pg MCHC (32-36) g/dl RDW (11.5-14.5) % Plt Count (150-375) k/mm3 MPV (7.4-10.4) fl Immature Gran % (Auto) (0-0.5) % Neut % (Auto) (45.5-73.1) % Lymph % (Auto) (18.3-44.2) % [place] % (Auto) (2.6-8.5) % Eos % (Auto) (0-4.4) % Baso % (Auto) (0.2-1.2) % Lymph # (Auto) (0.9-3.2) K/mm3 [place] # (Auto) (0.1-0.6) K/mm3 Eos # (Auto) (0-0.3) K/mm3 Baso # (Auto) (0.0-0.1) K/mm3 Abs Immat Gran (auto) (0.00-0.031) K/mm3 Absolute Neuts (auto) (1.3-6.7) K/mm3 Absolute Nucleated RBC (0.0-0.012) K/mm3 Nucleated RBC % (0.0-0.2) % PT (11.1-14.7) Seconds INR APTT (22.3-36.8) Seconds Sodium (137-145) mmol/L Potassium (3.4-5.0) mmol/L Chloride (98-107) mmol/L Carbon Dioxide (22-30) mmol/L Anion Gap (4-12) mmol/L BUN (9-20) mg/dL Creatinine (0.7-1.3) mg/dL Estim Creat Clear Calc Estimated GFR (59 - ) Glucose (65-110) mg/dL POC Capillary Glucose (65-105) mg/dl Lactic Acid 1.9 (0.7-2.0) mmol/L Calcium (8.4-10.2) mg/dL Phosphorus (2.5-4.5) mg/dL Magnesium (1.6-2.3) mg/dL Total Bilirubin (0.2-1.3) mg/dL AST (17-59) U/L ALT (6-50) U/L Alkaline Phosphatase (38-126) U/L Total Creatine Kinase (55-170) U/L Troponin I (0.000-0.034) ng/mL NT-Pro-B Natriuret Pep (19.9-100) pg/mL Total Protein (6.3-8.2) g/dL Albumin (3.5-5.1) g/dL Lipase (23-300) U/L TSH (Reflex) (0.465-4.68) uIU/mL Urine Color (Yellow) Urine Appearance (Clear) Urine pH (5.0-9.0) Ur Specific [place] (1.001-1.035) Urine Protein (Negative) mg/dL Urine Glucose (UA) (Negative) mg/dL Urine Ketones (Negative) mg/dL Ur Blood (Man) (Negative) Urine Nitrate (Negative) Urine Bilirubin (Negative) Urine Urobilinogen (<2.0) mg/dL Add Ur Microanalysis Leukocyte Esterase Rfl (Negative) RONALD/UL Urine RBC (0-2) /hpf Urine WBC (0-3) /hpf Ur Squamous Epith Cells (Few) /hpf Urine Bacteria /hpf Urine Casts Hyaline Casts (None) /lpf Urine Opiates Screen (Negative) Urine Methadone Screen (Negative) Acetaminophen (10-30) ug/mL Ur Barbiturates Screen (Negative) Ur Phencyclidine Scrn (Negative) Ur Amphetamine Screen (Negative) U Benzodiazepines Scrn (Negative) Urine Cocaine Screen (Negative) U Cannabinoids Screen (Negative) Ethyl Alcohol (<10) mg/dL Influenza A (RT-PCR) (Negative) Influenza B (RT-PCR) (Negative) RSV (RT-PCR) (Negative) SARS-CoV-2 RNA (RT-PCR) (Negative) ABG Data ABG results: 02/02/24 10:20 Puncture Site Left radial ABG pH 7.408 ABG pCO2 35.5 ABG pO2 71.6 L ABG PO2/FiO2 Ratio 3.41 ABG HCO3 21.9 L ABG O2 Saturation 94.7 L ABG O2 Content 20.6 ABG Base Excess -2.1 A-a Gradient 35.6 Oxyhemoglobin 93.2 Total Hemoglobin 15.7 O2 Delivery Device Room air O2 Liters/Min 0.0 FiO2 21 Discharge Plan Discharge Clinical Impression: Altered mental status Patient Disposition: Still a Patient Condition: Stable Prescriptions: No Action niacin [Niaspan Extended-Release] 750 mg tablet extended release 24 hr 750 mg PO DAILY citalopram 20 mg tablet 20 mg PO DAILY lansoprazole 30 mg capsule,delayed release(DR/EC) 303 mg PO DAILY rosuvastatin 10 mg tablet 10 mg PO DAILY fenofibrate 160 mg tablet 160 mg PO DAILY potassium citrate 15 mEq tablet extended release 15 meq PO DAILY saxagliptin-metformin [Kombiglyze XR] 5-1,000 mg tablet, ER multiphase 24 hr 1 tablet PO DAILY losartan 100 mg tablet 100 mg PO DAILY prednisone 20 mg tablet 20 mg PO DAILY glimepiride 4 mg tablet 4 mg PO DAILY Follow-up/Referrals: UNKNOWN,DOCTOR [Primary Care Provider] -
[2024-02-02] MEDS: LACTATED RINGERS 1,000 ML 75 ML IV CONT (13:14)
--- NOTE | 2024-02-02 14:30 | ADMGEN ---
This patient, Boyd Kendall, was admitted to [facility] Surg Room 304-02. Patient/family oriented to hospital policies and general routines including ID bracelet, bed and alarms, visiting hours, pain management, procedures, bathroom and other care routines, personal items, smoking policy, room service/diet, and visiting hours. Information on how to activate the Rapid Response Team has been discussed. Patient/Family are encouraged to report perceived risks to care and to ask questions if they do not understand what they are told or what they should do.
--- NOTE | 2024-02-02 15:40 | P.HP_ITS ---
H&P: HPI History of Present Illness Date/Time: 02/02/24 15:40 Chief Complaint: Behavioral changes. Narrative: This is a pleasant 68-year-old male with history of depression, hypertension, hyperlipidemia, type 2 diabetes mellitus, and chronic pain related to arthritis and DISH who presented to the emergency department via private vehicle for evaluation of behavioral changes. The patient provides the following history. His and son provides additional information, with the patient's permission. He began having troubles with depression in his early 50s and has been on citalopram. He has periods where his depression is worse and that has been the case since this summer when one of his closest friends . Over the past couple of works he has seemed increasingly depressed and reports that he has been ?very grouchy? since being started on prednisone a couple of weeks ago for severe arthritic pain. She goes on to say that he has had similar reactions to prednisone in the past. In any event, last night the patient brought up a suspected affair from 30 years ago which seemed to escalate quickly. He states that his has always denied the affair but he believes it to be true and it is frustrating to him that she will not admit. He seems to perseverate on that sometimes and last night he was unable to sleep because he was so mad about it. This morning he brought it up again and he apparently grabbed his arms and punched a hole in the wall. He then took his keys to go for a drive but his took them from him so he left the house on foot. He called his son to come pick him up and he found the patient short of breath and diaphoretic at the time however the patient tells me he was essentially running. Son states that this behavior is very unusual for the patient and they brought him in for evaluation. On arrival to triage he reported having thoughts of suicide but denied having plans. He has no prior history of suicide attempts and there is no history of completed suicide in his family. At the time my evaluation he has no harmful thoughts. He has not had any recent illnesses and denies fever, chills, headache, neck ache, sinus congestion, sore throat, cough, abdominal pain, nausea, vomiting, diarrhea, and dysuria. He does however report having difficulties urinating and with further questioning endorses slow stream, occasional dribbling, and occasional feelings of incomplete bladder evacuation. Aside from the recent prednisone, he has not had any recent changes in medications but did report taking a tramadol last night which has previously caused him confusion. He has not had any hallucinations. In the ED: He was afebrile on arrival with stable vital signs however blood pressures were transiently elevated to 190 systolic. Labs were significant for WBC count of 11.4, sodium 134, carbon dioxide 20, anion gap 14, glucose 374, lactic acid 1.9, TSH 1.850. Urinalysis was positive for 1+ protein, 3+ glucose, 3 to 5 RBC (obtained via straight catheterization as he was having difficulties urinating). Urine drug screen was negative as was ethyl alcohol level. He tested negative for influenza, RSV, and COVID. CT of the head was normal. CT of the abdomen pelvis showed no acute pathology. Chest x-ray was unremarkable. Review of Systems Review of Systems: 12 systems were reviewed and are negativ e except for as per HPI. [facility] Past Medical History Medical History (Updated 02/02/24 @ 22:37 by Ellen Powell PA-C) Anxiety Arthritis Depression Diffuse idiopathic skeletal hyperostosis Gastroesophageal reflux disease Hyperlipidemia Hypertension Type 2 diabetes mellitus Surgical History Surgical History (Updated 02/02/24 @ 22:37 by Ellen Powell PA-C) History of Achilles tendon repair History of lumbar surgery Hx of cervical spine surgery Family History Family History Other Hypertension Social History Social History (Updated 02/02/24 @ 22:38 by Ellen Powell PA-C) Social History: Surrogate medical decision maker: Pamela Enoch, spouse. Code status: Full code. 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 [employer] Spiritual care concerns: No Meds Home Medications and Allergies Home Medications Medication Instructions Recorded Confirmed Type citalopram 20 mg tablet 20 mg PO DAILY 11/14/20 02/02/24 History fenofibrate 160 mg tablet 160 mg PO DAILY 11/14/20 02/02/24 History lansoprazole 30 mg capsule,delayed 303 mg PO DAILY 11/14/20 02/02/24 History release niacin 750 mg tablet,extended 750 mg PO DAILY 11/14/20 02/02/24 History release 24 hr (Niaspan) potassium citrate 15 mEq (1,620 15 meq PO DAILY 11/14/20 02/02/24 History mg) tablet,extended release rosuvastatin 10 mg tablet 10 mg PO DAILY 11/14/20 02/02/24 History saxagliptin 5 mg-metformin ER 1 tablet PO DAILY 11/14/20 02/02/24 History 1,000 mg tablet,extend release 24hr mp (Kombiglyze XR) losartan 100 mg tablet 100 mg PO DAILY 10/07/23 02/02/24 History glimepiride 4 mg tablet 4 mg PO DAILY 02/02/24 02/02/24 History prednisone 20 mg tablet 20 mg PO DAILY 02/02/24 02/02/24 History Allergies Allergy/AdvReac Type Severity Reaction Status Date / Time No Known Allergies Allergy Verified 02/02/24 09:52 Vital Signs Vital Signs - 24 hr 02/02/24 09:34 02/02/24 10:18 02/02/24 09:33 Temperature 98.0 F Pulse Rate 122 H 122 H 129 H Respiratory Rate 20 29 H Blood Pressure 158/91 H 144/101 H Pulse Oximetry 100 100 Oxygen Delivery Room Air 02/02/24 09:45 02/02/24 10:00 02/02/24 11:15 Temperature 98.1 F Pulse Rate 116 H 101 H 87 Respiratory Rate 23 H 18 15 Blood Pressure 158/91 H 145/96 H 163/75 H Pulse Oximetry 98 94 97 Oxygen Delivery 02/02/24 11:25 02/02/24 11:31 02/02/24 12:16 Temperature 97.9 F 97.8 F 97.9 F Pulse Rate 85 80 93 Respiratory Rate 12 14 14 Blood Pressure 155/80 H 163/75 H 180/100 H Pulse Oximetry 98 99 100 Oxygen Delivery 02/02/24 13:01 Temperature Pulse Rate 101 H Respiratory Rate 21 H Blood Pressure 190/102 H Pulse Oximetry 100 Oxygen Delivery Exam Narrative: General: Well-developed, nontoxic-appearing gentleman lying on his right side in bed in no distress. Weight: 87.3 kg. BMI: 27.6. HEENT: Normocephalic, atraumatic. PERRL, EOMI. Sclera anicteric. Oral mucosa moist. Oropharynx clear. Neck: Supple. Full ledezma. Respiratory: Lungs are clear to auscultation bilaterally. Cardiovascular: Regular rate and rhythm with S1-S2. Gastrointestinal: Abdomen is soft, nontender, and nondistended with positive bowel sounds. Skin: Warm and dry. No rash or lesions on limited exam. Extremities: No cyanosis, clubbing, or edema. Radial and pedal pulses intact. Neurological: Alert and oriented. Cranial nerves 2-12 are grossly intact. No gross focal deficits to casual conversation. Psychiatric: Pleasant and cooperative with depressed mood and flat affect. Good eye contact. H&P: Results Labs Labs: Short CBC 02/02/24 Range/Units 10:06 WBC 11.4 H (4.5-10.0) K/mm3 Hgb 16.3 (14.0-18.0) g/dL Hct 46.3 (42.0-52.0) % Plt Count 237 (150-375) k/mm3 BMP 02/02/24 10:06 Sodium 134 L Potassium 4.0 Chloride 100 Carbon Dioxide 20 L BUN 20 Creatinine 1.00 Glucose 374 H Calcium 9.6 Cardiac Enzymes 02/02/24 02/02/24 Range/Units 10:06 13:12 Total Creatine Kinase 145 (55-170) U/L Troponin I < 0.012 0.020 D (0.000-0.034) ng/mL Liver Function 02/02/24 Range/Units 10:06 Total Bilirubin 1.1 (0.2-1.3) mg/dL AST 30 (17-59) U/L ALT 25 (6-50) U/L Alkaline Phosphatase 39 (38-126) U/L Albumin 4.8 (3.5-5.1) g/dL Urine 02/02/24 Range/Units 10:29 Urine Color Yellow (Yellow) Urine Appearance Clear (Clear) Urine pH 6.5 (5.0-9.0) Ur Specific [place] 1.031 (1.001-1.035) Urine Protein 1+ H (Negative) mg/dL Urine Glucose (UA) 3+ H (Negative) mg/dL Assessment and Plan Assessment and plan (1) Behavioral change: Code(s): R46.89 - Other symptoms and signs involving appearance and behavior Status: Acute (2) Suicidal thoughts: Code(s): R45.851 - Suicidal ideations Status: Acute (3) Major depressive disorder: Code(s): F32.9 - Major depressive disorder, single episode, unspecified Status: Acute (4) Anxiety: Code(s): F41.9 - Anxiety disorder, unspecified Status: Acute (5) Hypertension: Code(s): I10 - Essential (primary) hypertension Status: Acute (6) Hyperlipidemia: Code(s): E78.5 - Hyperlipidemia, unspecified Status: Acute (7) Type 2 diabetes mellitus: Code(s): E11.9 - Type 2 diabetes mellitus without complications Status: Acute (8) Diffuse idiopathic skeletal hyperostosis: Code(s): M48.10 - Ankylosing hyperostosis [[place]], site unspecified Status: Acute Plan The patient presented to the emergency department for evaluation of behavioral changes including anger outbursts and worsening depression as detailed in HPI. Labs, imaging, EKG, and all reports were personally reviewed. He endorses chronic depression which has been worse since his friend this summer. The behavior changes seem to occur her around the same time that he was started on prednisone and his states he had similar but but a less severe episode of anger when he was on prednisone earlier this summer. Prednisone can cause mood and cognitive changes and that may very well be what has happened here. His mother had Lewy body dementia and family is worried about that but I do not think that is a concern at this time. At the timeof my evaluation he is not actively suicidal but admits that he thinks about it. He does not have a plan. He is not homicidal. It does not sound as though he has been evaluated by a psychiatrist nor has he participated in therapy and both were encouraged. Consult crisis in a.m.. Continue citalopram. Blood pressures were elevated earlier but are improving and I suspect that was related to anxiety. WBC count is a bit elevated but is likely due to steroids as he gives no history to suggest underlying infection. Random glucose was 374 which is again likely due to the steroids. Continue oral diabetic medication and initiate sliding scale insulin, Accu-Cheks, and hypoglycemic protocol. Check hemoglobin A1c. The rest of his home medications will be reviewed and resumed as appropriate. Findings and treatment plan were discussed with the patient. Questions were solicited and answered to satisfaction. The patient's medical management will be taken over by the hospitalist team in a.m. Quality VTE Prophylaxis VTE prophylaxis: mechanical ordered Hospitalist [facility] Advance Care Plan I have confirmed that the patient's Advanced Care Plan is present, code status is documented, or surrogate decision maker is listed in patient medical record.: Yes Medication Reconciliation I have utilized all available resources to obtain, update and review the patients current medications (includes all prescriptions, OTC, herbals, cannabis, and nutritional supplements).: Yes
[2024-02-02] MEDS: LIDOCAINE HCL 2% GEL UROJET 10 ML PKG MUCOUS MEM (21:35)
[2024-02-02] MEDS: ALPRAZolam (*CRX) 0.25 MG TABLET PO (21:35)
[2024-02-03 06:00] VITALS: BP 130/70; PULSE 64; RESP 18; TEMP 37.7; O2SAT 98
[2024-02-03 06:22] LABS: Hematocrit 41.2 % (42.0-52.0); Hemoglobin 14.1 g/dL (14.0-18.0); Mean Corpuscular HGB Conc 34.2 g/dl (32-36); Mean Corpuscular Hemoglobin 29.8 pg (26-34); Mean Corpuscular Volume 87.1 fl (80-100); Mean Platelet Volume 9.3 fl (7.4-10.4); Platelet Count Result 184 k/mm3 (150-375); Red Blood Count 4.73 M/mm3 (4.6-6.20); Red Cell Distribution Width 13.6 % (11.5-14.5); White Blood Count 7.3 K/mm3 (4.5-10.0)
[2024-02-03 06:45] LABS: Alanine Aminotransferase 22 U/L (6-50); Albumin Level 3.7 g/dL (3.5-5.1); Alkaline Phosphatase 38 U/L (38-126); Anion Gap 5 mmol/L (4-12); Aspartate Amino Transferase 32 U/L (17-59); Blood Urea Nitrogen 12 mg/dL (9-20); Calcium 8.8 mg/dL (8.4-10.2); Carbon Dioxide 27 mmol/L (22-30); Chloride 105 mmol/L (98-107); Estimated CRCL calculation 77 ml/min; Estimated Glomerular Filt Rate > 60; Glucose 162 mg/dL (65-110); Potassium 3.8 mmol/L (3.4-5.0); Sodium 137 mmol/L (137-145)
[2024-02-03] MEDS: ACETAMINOPHEN 325 MG TABLET 650 MG PO (06:46)
[2024-02-03 07:48] LABS: Thyroid Stimulating Hormone Reflex 0.828 uIU/mL (0.465-4.68)
--- NOTE | 2024-02-03 07:49 | P.PNIM_ITS ---
Progress Note: A&P Assessment and Plan (1) Behavioral change: Code(s): R46.89 - Other symptoms and signs involving appearance and behavior Status: Acute Assessment and Plan: Follow up with PCP, consider neurology follow up if progressive (2) Major depressive disorder: Code(s): F32.9 - Major depressive disorder, single episode, unspecified Status: Acute Assessment and Plan: Low interest in activities and low mood, insomnia at night that he treats with benadryl pm. No VH/AH. Sometimes has transient suicidal thoughts but no plan. No active SI/HI. Primary issue is gradually worsened depression per patient's since summer, sometimes with anxious thoughts followed by angry outbursts. --Increase celexa 20mg to 40mg daily --Start seroquel 12.5mg hs, 25mg BID prn for agitation, increase as needed --Can DC sitter --Interested in outpatient follow up with psychiatry locally and with counseling. (3) Anxiety: Code(s): F41.9 - Anxiety disorder, unspecified Status: Acute Assessment and Plan: Continue xanax prn (4) Hypertension: Code(s): I10 - Essential (primary) hypertension Status: Acute Assessment and Plan: Home med: Losartan 100mg daily, Tamsulosin 0.4mg hs Blood pressure 130/70 --Continue home meds (5) Hyperlipidemia: Code(s): E78.5 - Hyperlipidemia, unspecified Status: Acute Assessment and Plan: Continue Statin (6) Type 2 diabetes mellitus: Code(s): E11.9 - Type 2 diabetes mellitus without complications Status: Acute Assessment and Plan: Home meds: Metformin XL 1000mg daily, Januvia 100 daily --unit educator if still here on Monday. Teach SSI (7) Diffuse idiopathic skeletal hyperostosis: Code(s): M48.10 - Ankylosing hyperostosis [[place]], site unspecified Status: Acute Assessment and Plan: Back and knee pain resolved with steroids --Completed a short course of Prednisone (8) Fever: Code(s): R50.9 - Fever, unspecified Status: Acute Assessment and Plan: Temp 100.3 overnight. Reports dysuria after catheter placement --02/01 Blood cultures x2 no growth --UA negative --No respiratory symptoms --Check Flu/COVID given unclear etiology --chest x-ray if continued fevers Time Spent With Patient Time: 56 minutes Subjective Date/time seen: 02/03/24 07:49 Interval history: Patient reports dysuria. Also had a temp of 100.3 overnight. Blood sugars improved. Otherwise VSS. Hospital Course: The patient is a68 year old man hx depression, admitted for evaluation of behavioral changes, angry outbursts and worsening depression. Chronic depression which has been worse since his friend this summer. Behavioral changes seemed to occur around the same time that he was started on prednisone and his states he had similar but but a less severe episode of anger this summer. Family noted a family hx of lewy body dementia. No active SI or HI. Review of Systems Review of Systems: 12 systems were reviewed and are negativ e except for as per HPI. Exam Narrative: General: Well-developed, nontoxic-appearing gentleman lying on his right side in bed in no distress. Weight: 87.3 kg. BMI: 27.6. HEENT: Normocephalic, atraumatic. PERRL, EOMI. Sclera anicteric. Oral mucosa moist. Oropharynx clear. Neck: Supple. Full ledezma. Respiratory: Lungs are clear to auscultation bilaterally. Cardiovascular: Regular rate and rhythm with S1-S2. Gastrointestinal: Abdomen is soft, nontender, and nondistended with positive bowel sounds. Skin: Warm and dry. No rash or lesions on limited exam. Extremities: No cyanosis, clubbing, or edema. Radial and pedal pulses intact. Neurological: Alert and oriented. Cranial nerves 2-12 are grossly intact. No gross focal deficits to casual conversation. Psychiatric: Pleasant and cooperative with depressed mood and flat affect. Good eye contact. Objective Data Vital Signs Vital Signs: Vital Signs - 24 hr 02/02/24 09:34 02/02/24 10:18 02/02/24 09:33 Temperature 98.0 F Pulse Rate 122 H 122 H 129 H Respiratory Rate 20 29 H Blood Pressure 158/91 H 144/101 H Pulse Oximetry 100 100 Oxygen Delivery Room Air 02/02/24 09:45 02/02/24 10:00 02/02/24 11:15 Temperature 98.1 F Pulse Rate 116 H 101 H 87 Respiratory Rate 23 H 18 15 Blood Pressure 158/91 H 145/96 H 163/75 H Pulse Oximetry 98 94 97 Oxygen Delivery 02/02/24 11:25 02/02/24 11:31 02/02/24 12:16 Temperature 97.9 F 97.8 F 97.9 F Pulse Rate 85 80 93 Respiratory Rate 12 14 14 Blood Pressure 155/80 H 163/75 H 180/100 H Pulse Oximetry 98 99 100 Oxygen Delivery 02/02/24 13:01 02/02/24 18:40 02/02/24 15:00 Temperature Pulse Rate 101 H 78 Respiratory Rate 21 H 18 Blood Pressure 190/102 H 136/82 Pulse Oximetry 100 98 Oxygen Delivery Room Air 02/02/24 21:45 02/02/24 20:00 02/03/24 06:00 Temperature 100.3 F H 99.9 F H Pulse Rate 65 64 Respiratory Rate 18 18 Blood Pressure 133/70 130/70 Pulse Oximetry 94 98 Oxygen Delivery Room Air Intake/Output Intake/Output: Intake & Output 01/31/24 02/01/24 02/02/24 02/03/24 23:59 23:59 23:59 23:59 Intake Total 2920 Output Total 820 420 Balance 2100 -420 Meds/Results Medications: Active Medications Generic Name Dose Route Start Last Admin Trade Name Freq PRN Reason Stop Dose Admin Acetaminophen 650 mg 02/02/24 22:44 02/03/24 06:46 Acetaminophen 325 Mg Tablet PO 650 mg Q6H PRN Administration Mild Pain (1-3) or Fever Citalopram Hydrobromide 20 mg 02/03/24 09:00 Citalopram Hydrobromide 20 Mg Tablet PO DAILY [facility] Dextrose 12.5 gm 02/02/24 22:44 Dextrose 50% 25 Gm/50 Ml Syringe IV PUSH PRN PRN Hypoglycemia Protocol Fenofibrate 160 mg 02/03/24 09:00 Fenofibrate 160 Mg Tablet PO DAILY [facility] Glimepiride 4 mg 02/03/24 09:00 Glimepiride 2 Mg Tablet PO DAILY [facility] Glucagon 1 mg 02/02/24 22:44 Glucagon For Inj 1 Mg Vial IM PRN PRN Hypoglycemia Protocol Glucose 15 gm 02/02/24 22:44 Glucose Oral Gel 15 Gm Of Glucse In 37.5 Gm Tube PO PRN PRN Hypoglycemia Protocol Dextrose 1,000 mls @ 100 mls/hr 02/02/24 22:44 Dextrose 5% 1,000 Ml IVPB PRN PRN Hypoglycemia Protocol Insulin Aspart 3 - 6 units 02/03/24 08:00 Insulin Aspart (*Bkc) 100 Units/Ml SUB-Q TIDWM [facility] Protocol Insulin Aspart 1 - 3 units 02/03/24 21:00 Insulin Aspart (*Bkc) 100 Units/Ml SUB-Q HS [facility] Protocol Losartan Potassium 100 mg 02/03/24 09:00 Losartan Potassium 100 Mg Tablet PO DAILY [facility] [place] Metformin HCl 1,000 mg 02/03/24 09:00 Metformin Hcl Xr 500 Mg Tab.Sr.24h PO QAM [facility] Pantoprazole Sodium 40 mg 02/03/24 09:00 Pantoprazole 40 Mg Tablet PO QAM [facility] [place] Potassium Citrate 15 meq 02/03/24 09:00 Potassium Citrate 5 Meq Tab Cr PO DAILY [facility] [place] Rosuvastatin Calcium 10 mg 02/03/24 09:00 Rosuvastatin 10 Mg Tablet PO DAILY [facility] [place] Sitagliptin Phosphate 100 mg 02/03/24 09:00 Sitagliptin Phosphate 100 Mg Tablet PO QAM [facility] [place] Tamsulosin HCl 0.4 mg 02/03/24 09:00 Tamsulosin Hcl 0.4 Mg Capsule PO QAM [facility] [place] Radiology Results: ITS Impressions Head CT 02/02/24 11:12 IMPRESSION: 1. Normal brain. Abdomen/Pelvis CT 02/02/24 11:13 IMPRESSION: No acute intra-abdominal pathology, as detailed above. Chest X-Ray 02/02/24 11:16 IMPRESSION: 1. No acute cardiopulmonary disease. Labs Labs: Laboratory Results - last 24 hr 02/02/24 02/02/24 02/02/24 09:54 10:06 10:20 WBC 11.4 H RBC 5.47 Hgb 16.3 Hct 46.3 MCV 84.6 MCH 29.8 MCHC 35.2 RDW 13.2 Plt Count 237 MPV 9.1 Immature Gran % (Auto) 0.7 H Neut % (Auto) 77.1 H Lymph % (Auto) 12.2 L [place] % (Auto) 9.7 H Eos % (Auto) 0.1 Baso % (Auto) 0.2 Lymph # (Auto) 1.39 [place] # (Auto) 1.1 H Eos # (Auto) 0.0 Baso # (Auto) 0.0 Abs Immat Gran (auto) 0.08 H Absolute Neuts (auto) 8.8 H Absolute Nucleated RBC 0.000 Nucleated RBC % 0.0 PT 14.0 INR 1.0 APTT 22.2 L Puncture Site Left radial ABG pH 7.408 ABG pCO2 35.5 ABG pO2 71.6 L ABG PO2/FiO2 Ratio 3.41 ABG HCO3 21.9 L ABG O2 Saturation 94.7 L ABG O2 Content 20.6 ABG Base Excess -2.1 A-a Gradient 35.6 Oxyhemoglobin 93.2 Total Hemoglobin 15.7 O2 Delivery Device Room air O2 Liters/Min 0.0 FiO2 21 Sodium 134 L Potassium 4.0 Chloride 100 Carbon Dioxide 20 L Anion Gap 14 H BUN 20 Creatinine 1.00 Estim Creat Clear Calc Not Reportable Estimated GFR > 60 Glucose 374 H POC Capillary Glucose 383 H Lactic Acid Calcium 9.6 Phosphorus 3.7 Magnesium 1.7 Total Bilirubin 1.1 AST 30 ALT 25 Alkaline Phosphatase 39 Total Creatine Kinase 145 Troponin I < 0.012 NT-Pro-B Natriuret Pep 100 Total Protein 8.0 Albumin 4.8 Lipase 66 TSH (Reflex) 1.850 Urine Color Urine Appearance Urine pH Ur Specific [place] Urine Protein Urine Glucose (UA) Urine Ketones Ur Blood (Man) Urine Nitrate Urine Bilirubin Urine Urobilinogen Add Ur Microanalysis Leukocyte Esterase Rfl Urine RBC Urine WBC Ur Squamous Epith Cells Urine Bacteria Urine Casts Hyaline Casts Urine Opiates Screen Urine Methadone Screen Acetaminophen < 10 L Ur Barbiturates Screen Ur Phencyclidine Scrn Ur Amphetamine Screen U Benzodiazepines Scrn Urine Cocaine Screen U Cannabinoids Screen Ethyl Alcohol < 10 Influenza A (RT-PCR) Influenza B (RT-PCR) RSV (RT-PCR) SARS-CoV-2 RNA (RT-PCR) 02/02/24 02/02/24 02/02/24 10:29 12:04 13:12 WBC RBC Hgb Hct MCV MCH MCHC RDW Plt Count MPV Immature Gran % (Auto) Neut % (Auto) Lymph % (Auto) [place] % (Auto) Eos % (Auto) Baso % (Auto) Lymph # (Auto) [place] # (Auto) Eos # (Auto) Baso # (Auto) Abs Immat Gran (auto) Absolute Neuts (auto) Absolute Nucleated RBC Nucleated RBC % PT INR APTT Puncture Site ABG pH ABG pCO2 ABG pO2 ABG PO2/FiO2 Ratio ABG HCO3 ABG O2 Saturation ABG O2 Content ABG Base Excess A-a Gradient Oxyhemoglobin Total Hemoglobin O2 Delivery Device O2 Liters/Min FiO2 Sodium Potassium Chloride Carbon Dioxide Anion Gap BUN Creatinine Estim Creat Clear Calc Estimated GFR Glucose POC Capillary Glucose Lactic Acid 1.9 Calcium Phosphorus Magnesium Total Bilirubin AST ALT Alkaline Phosphatase Total Creatine Kinase Troponin I 0.020 D NT-Pro-B Natriuret Pep Total Protein Albumin Lipase TSH (Reflex) Urine Color Yellow Urine Appearance Clear Urine pH 6.5 Ur Specific [place] 1.031 Urine Protein 1+ H Urine Glucose (UA) 3+ H Urine Ketones Negative Ur Blood (Man) Negative Urine Nitrate Negative Urine Bilirubin Negative Urine Urobilinogen 1.0 Add Ur Microanalysis Reviewed Leukocyte Esterase Rfl Negative Urine RBC 3-5 H Urine WBC 0-5 Ur Squamous Epith Cells None seen Urine Bacteria None seen Urine Casts 6-10 Hyaline Casts Present Urine Opiates Screen Negative Urine Methadone Screen Negative Acetaminophen Ur Barbiturates Screen Negative Ur Phencyclidine Scrn Negative Ur Amphetamine Screen Negative U Benzodiazepines Scrn Negative Urine Cocaine Screen Negative U Cannabinoids Screen Negative Ethyl Alcohol Influenza A (RT-PCR) Negative Influenza B (RT-PCR) Negative RSV (RT-PCR) Negative SARS-CoV-2 RNA (RT-PCR) Negative 02/03/24 05:26 WBC 7.3 RBC 4.73 Hgb 14.1 Hct 41.2 L MCV 87.1 MCH 29.8 MCHC 34.2 RDW 13.6 Plt Count 184 MPV 9.3 Immature Gran % (Auto) Neut % (Auto) Lymph % (Auto) [place] % (Auto) Eos % (Auto) Baso % (Auto) Lymph # (Auto) [place] # (Auto) Eos # (Auto) Baso # (Auto) Abs Immat Gran (auto) Absolute Neuts (auto) Absolute Nucleated RBC Nucleated RBC % PT INR APTT Puncture Site ABG pH ABG pCO2 ABG pO2 ABG PO2/FiO2 Ratio ABG HCO3 ABG O2 Saturation ABG O2 Content ABG Base Excess A-a Gradient Oxyhemoglobin Total Hemoglobin O2 Delivery Device O2 Liters/Min FiO2 Sodium 137 Potassium 3.8 Chloride 105 Carbon Dioxide 27 Anion Gap 5 BUN 12 D Creatinine 0.80 Estim Creat Clear Calc 77 Estimated GFR > 60 Glucose 162 H POC Capillary Glucose Lactic Acid Calcium 8.8 Phosphorus Magnesium 2.0 Total Bilirubin 1.0 AST 32 ALT 22 Alkaline Phosphatase 38 Total Creatine Kinase Troponin I NT-Pro-B Natriuret Pep Total Protein 7.0 Albumin 3.7 Lipase TSH (Reflex) 0.828 Urine Color Urine Appearance Urine pH Ur Specific [place] Urine Protein Urine Glucose (UA) Urine Ketones Ur Blood (Man) Urine Nitrate Urine Bilirubin Urine Urobilinogen Add Ur Microanalysis Leukocyte Esterase Rfl Urine RBC Urine WBC Ur Squamous Epith Cells Urine Bacteria Urine Casts Hyaline Casts Urine Opiates Screen Urine Methadone Screen Acetaminophen Ur Barbiturates Screen Ur Phencyclidine Scrn Ur Amphetamine Screen U Benzodiazepines Scrn Urine Cocaine Screen U Cannabinoids Screen Ethyl Alcohol Influenza A (RT-PCR) Influenza B (RT-PCR) RSV (RT-PCR) SARS-CoV-2 RNA (RT-PCR) Quality VTE Prophylaxis VTE prophylaxis: mechanical ordered Hospitalist MIPS Advance Care Plan I have confirmed that the patient's Advanced Care Plan is present, code status is documented, or surrogate decision maker is listed in patient medical record.: Yes Medication Reconciliation I have utilized all available resources to obtain, update and review the patients current medications (includes all prescriptions, OTC, herbals, cannabi s, and nutritional supplements).: Yes
[2024-02-03] MEDS: CITALOPRAM HYDROBROMIDE 20 MG TABLET PO ×2 (09:05→11:48)
[2024-02-03] MEDS: FENOFIBRATE 160 MG TABLET PO (09:05)
[2024-02-03] MEDS: GLIMEPIRIDE 2 MG TABLET 4 MG PO (09:05)
[2024-02-03] MEDS: TAMSULOSIN HCL 0.4 MG CAPSULE PO (09:05)
[2024-02-03] MEDS: LOSARTAN POTASSIUM 100 MG TABLET PO (09:05)
[2024-02-03] MEDS: ROSUVASTATIN 10 MG TABLET PO (09:05)
[2024-02-03] MEDS: POTASSIUM CITRATE 5 MEQ TAB CR 15 MEQ PO (09:06)
[2024-02-03] MEDS: PANTOPRAZOLE 40 MG TABLET PO (09:08)
[2024-02-03 11:23] LABS: Glucose Point of Care 158 mg/dl (65-105)
[2024-02-03 11:25] LABS: Glucose Point of Care 207 mg/dl (65-105)
[2024-02-03] MEDS: INSULIN ASPART (*BKC) 100 UNITS/ML SUB-Q ×2 (11:48→17:02)
[2024-02-03] MEDS: PHENAZOPYRIDINE HCL 100 MG TABLET PO (11:55)
[2024-02-03 12:32] LABS: Add Urine Microscopic? NO; Appearance Urine Clear (Clear); Bilirubin Urine Negative (Negative); Blood Urine Negative (Negative); Color Urine Yellow (Yellow); Glucose Urine UA 2+ mg/dL (Negative); Ketones Urine Negative (Negative); Leukocyte Esterase Ur Negative LEU/UL (Negative); Nitrate Urine Negative (Negative); Protein Urine Negative (Negative); Specific Grav Ur 1.012 (1.001-1.035)
[2024-02-03 14:00] VITALS: BP 148/74; PULSE 84; RESP 16; TEMP 36.6; O2SAT 95
[2024-02-03 14:33] LABS: Influenza A QL RT-PCR Negative (Negative); Influenza B QL RT-PCR Negative (Negative); RSV RNA, RT-PCR Negative (Negative); SARS-CoV-2 RNA PCR Negative (Negative)
[2024-02-03 16:21] LABS: Glucose Point of Care 261 mg/dl (65-105)
[2024-02-03 16:34] VITALS: BP 135/76; PULSE 80; RESP 16; TEMP 36.4; O2SAT 95
[2024-02-03] MEDS: QUEtiapine FUMARATE 12.5 MG TABLET PO (20:48)
[2024-02-03 21:25] LABS: Glucose Point of Care 193 mg/dl (65-105)
[2024-02-03 21:45] VITALS: BP 129/54; PULSE 72; RESP 18; TEMP 36.4; O2SAT 96
[2024-02-04 06:00] VITALS: BP 134/62; PULSE 69; RESP 20; TEMP 36.8; O2SAT 100
[2024-02-04 06:43] LABS: Basophils Percent Auto 0.7 % (0.2-1.2); Eosinophils Absolute Auto 0.2 K/mm3 (0-0.3); Eosinophils Percent Auto 2.8 % (0-4.4); Hematocrit 42.1 % (42.0-52.0); Immature Granulocyte Absolute 0.07 K/mm3 (0.00-0.031); Immature Granulocyte Percent A 1.1 % (0-0.5); Lymphocytes Absolute Auto 1.98 K/mm3 (0.9-3.2); Lymphocytes Percent Auto 32.4 % (18.3-44.2); Mean Corpuscular HGB Conc 33.3 g/dl (32-36); Mean Corpuscular Volume 87.2 fl (80-100); Monocytes Absolute Auto 0.7 K/mm3 (0.1-0.6); Monocytes Percent Auto 12.1 % (2.6-8.5); Neutrophils Absolute Auto 3.1 K/mm3 (1.3-6.7); Neutrophils Percent Auto 50.9 % (45.5-73.1); Platelet Count Result 179 k/mm3 (150-375); Red Blood Count 4.83 M/mm3 (4.6-6.20); Red Cell Distribution Width 13.2 % (11.5-14.5); White Blood Count 6.1 K/mm3 (4.5-10.0)
[2024-02-04 06:54] LABS: Anion Gap 7 mmol/L (4-12); Blood Urea Nitrogen 16 mg/dL (9-20); Calcium 9.3 mg/dL (8.4-10.2); Carbon Dioxide 27 mmol/L (22-30); Chloride 104 mmol/L (98-107); Estimated CRCL calculation 77 ml/min; Estimated Glomerular Filt Rate > 60; Glucose 193 mg/dL (65-110); Potassium 3.9 mmol/L (3.4-5.0); Sodium 138 mmol/L (137-145)
[2024-02-04 06:59] LABS: CRP < 0.5 mg/dL (<1.0)
[2024-02-04 07:13] LABS: Erythrocyte Sedimentation Rate 7 mm/hr (0-20)
[2024-02-04 07:15] LABS: Vitamin D 25 Hydroxy 39.1 ng/mL
[2024-02-04 07:33] LABS: HIV 1/2 Ab P24 Ag Result Negative (Negative)
[2024-02-04 07:38] LABS: Glucose Point of Care 221 mg/dl (65-105)
[2024-02-04] MEDS: POTASSIUM CITRATE 5 MEQ TAB CR 15 MEQ PO (08:33)
[2024-02-04] MEDS: FENOFIBRATE 160 MG TABLET PO (08:33)
[2024-02-04] MEDS: SITagliptin PHOSPHATE 100 MG TABLET PO (08:34)
[2024-02-04] MEDS: LOSARTAN POTASSIUM 100 MG TABLET PO (08:34)
[2024-02-04] MEDS: CITALOPRAM HYDROBROMIDE 20 MG TABLET 40 MG PO (08:34)
[2024-02-04] MEDS: TAMSULOSIN HCL 0.4 MG CAPSULE PO (08:34)
[2024-02-04] MEDS: ROSUVASTATIN 10 MG TABLET PO (08:34)
[2024-02-04] MEDS: PANTOPRAZOLE 40 MG TABLET PO (08:34)
[2024-02-04] MEDS: metFORMIN HCL XR 500 MG TAB.SR.24H 1000 MG PO (08:34)
[2024-02-04] MEDS: GLIMEPIRIDE 2 MG TABLET 4 MG PO (08:34)
[2024-02-04] MEDS: INSULIN ASPART (*BKC) 100 UNITS/ML SUB-Q ×2 (08:50→11:51)
[2024-02-04] MEDS: PHENAZOPYRIDINE HCL 100 MG TABLET PO (09:33)
[2024-02-04 11:32] LABS: Glucose Point of Care 217 mg/dl (65-105)
[2024-02-04 11:42] LABS: Rapid Plasma Reagin Non-Reactive (NonReactive)
--- NOTE | 2024-02-04 13:43 | P.DS_ITS ---
DS: Admitting Diagnosis Discharge Date 02/04/2024 Admitting Diagnosis URI/ major depressive disorder DS: Discharge Diagnosis Discharge Diagnosis (1) Behavioral change: Code(s): R46.89 - Other symptoms and signs involving appearance and behavior Status: Acute (2) Major depressive disorder: Code(s): F32.9 - Major depressive disorder, single episode, unspecified Status: Acute (3) Anxiety: Code(s): F41.9 - Anxiety disorder, unspecified Status: Acute (4) Hypertension: Code(s): I10 - Essential (primary) hypertension Status: Acute (5) Hyperlipidemia: Code(s): E78.5 - Hyperlipidemia, unspecified Status: Acute (6) Type 2 diabetes mellitus: Code(s): E11.9 - Type 2 diabetes mellitus without complications Status: Acute (7) Diffuse idiopathic skeletal hyperostosis: Code(s): M48.10 - Ankylosing hyperostosis [[place]], site unspecified Status: Acute (8) Fever: Code(s): R50.9 - Fever, unspecified Status: Acute DS: Summary Hospital Course Reason for hospitalization: URI/ major depressive disorder/ urinary retention Hospital Course: patient was a 68-year-old male who presented to the emergency department with symptoms of upper respiratory infection and worsening MDD as well as urinary retention. patient's chest x-ray was negative for any acute cardiopulmonary issues and CT ABD with acute findings. family however was concerned because patient was experiencing behavioral changes with more aggressive agitation and worsening depression. as noted throughout the medical chart patient continued to severe episodes of depression and thoughts of suicidal ideations that were intermittent. Patient reported last suicidal thought 02/01/2024. during patient's hospitalization he did undergo bladder trial so was able to remove his Saini catheter after receiving Flomax with you further urinary retention. patient did have 1 episode of fever 100 resolved with Tylenol and but no evidence of bacterial infection Likely viral. patient had then been evaluated by [facility] at which time they stated he did need inpatient services and was low risk for suicide. patient was provided resources for psychiatric follow-up as well as support groups, therapist available in the area. continued patient's citalopram max does and provided Seroquel at night patient having difficulty sleeping. I did encourage in patient symptoms return with worsening suicidal ideations to seek inpatient psychiatric services, patient family provided information on closest Behavioral Health inpatient service at [facility] in [place]. patient discharged home with family. Status at Discharge Functional status at discharge: independent ambulation Overall status at discharge: patient is progressing back to baseline Time Spent with Patient Time attestation: Total time spent providing and/or coordinating discharge services: Time spent: Greater than 30 minutes Exam Narrative: General: Well-developed, nontoxic-appearing gentleman HEENT: Normocephalic, atraumatic. PERRL, EOMI. Sclera anicteric. Oral mucosa moist. Oropharynx clear. Neck: Supple. Full ledezma. Respiratory: Lungs are clear to auscultation bilaterally. Cardiovascular: Regular rate and rhythm with S1-S2. Gastrointestinal: Abdomen is soft, nontender, and nondistended with positive bowel sounds. Skin: Warm and dry. No rash or lesions on limited exam. Extremities: No cyanosis, clubbing, or edema. Radial and pedal pulses intact. Neurological: Alert and oriented. Cranial nerves 2-12 are grossly intact. No gross focal deficits to casual conversation. Psychiatric: Withdrawn tearful and depressed mood and flat affect. Poor eye contact DS: Data Data Completed and Pending Labs on day of discharge: Labs from last 24 hours 02/04/24 02/04/24 02/04/24 11:29 07:34 06:12 WBC 6.1 RBC 4.83 Hgb 14.0 Hct 42.1 MCV 87.2 MCH 29.0 MCHC 33.3 RDW 13.2 Plt Count 179 MPV 9.0 Immature Gran % (Auto) 1.1 H Neut % (Auto) 50.9 Lymph % (Auto) 32.4 Mccormick % (Auto) 12.1 H Eos % (Auto) 2.8 Baso % (Auto) 0.7 Lymph # (Auto) 1.98 Mccormick # (Auto) 0.7 H Eos # (Auto) 0.2 Baso # (Auto) 0.0 Abs Immat Gran (auto) 0.07 H Absolute Neuts (auto) 3.1 Absolute Nucleated RBC 0.000 Nucleated RBC % 0.0 ESR 7 Sodium 138 Potassium 3.9 Chloride 104 Carbon Dioxide 27 Anion Gap 7 BUN 16 Creatinine 0.80 Estim Creat Clear Calc 77 Estimated GFR > 60 Glucose 193 H POC Capillary Glucose 217 H 221 H Calcium 9.3 C-Reactive Protein < 0.5 Vitamin B12 643.0 Vitamin D 25-Hydroxy 39.1 RPR Non-reactive HIV 1&2 Ab/P24 Ag 4thGn Negative Influenza A (RT-PCR) Influenza B (RT-PCR) RSV (RT-PCR) SARS-CoV-2 RNA (RT-PCR) 02/03/24 02/03/24 02/03/24 21:22 16:18 13:52 WBC RBC Hgb Hct MCV MCH MCHC RDW Plt Count MPV Immature Gran % (Auto) Neut % (Auto) Lymph % (Auto) Mccormick % (Auto) Eos % (Auto) Baso % (Auto) Lymph # (Auto) Mccormick # (Auto) Eos # (Auto) Baso # (Auto) Abs Immat Gran (auto) Absolute Neuts (auto) Absolute Nucleated RBC Nucleated RBC % ESR Sodium Potassium Chloride Carbon Dioxide Anion Gap BUN Creatinine Estim Creat Clear Calc Estimated GFR Glucose POC Capillary Glucose 193 H 261 H Calcium C-Reactive Protein Vitamin B12 Vitamin D 25-Hydroxy RPR HIV 1&2 Ab/P24 Ag 4thGn Influenza A (RT-PCR) Negative Influenza B (RT-PCR) Negative RSV (RT-PCR) Negative SARS-CoV-2 RNA (RT-PCR) Negative Preliminary micro results at discharge 02/02/24 10:06 Blood Culture - Preliminary Blood 02/02/24 10:45 Blood Culture - Preliminary Blood Imaging Radiologist's impression: Radiology Results: ITS Impressions Head CT 02/02/24 11:12 IMPRESSION: 1. Normal brain. Abdomen/Pelvis CT 02/02/24 11:13 IMPRESSION: No acute intra-abdominal pathology, as detailed above. Chest X-Ray 02/02/24 11:16 IMPRESSION: 1. No acute cardiopulmonary disease. Discharge Plan Discharge Attending physician on discharge: Fam Martinez Discharging Clinician: Teresa Yee Anticipated Discharge Date/Time: 02/04/24 10:12 Patient Disposition: Home, Self-Care Activity: unlimited and as tolerated Diet: heart healthy Discharge Instructions: You are being discharged to home after evaluation and treatment for upper respiratory infection and worsening depression. Continue with supportive care at home with the decongestion, acetaminophen for mild aches and fever. [facility] had evaluated you for inpatient mental health services however determined you could follow-up outpatient with Therapy and to continue on your anti-depressant medications. Services information was provided to you at time of consult and I encourage immediate follow-up after discharge. Ensure safety in the house and remove all guns if you have thoughts of suicide seek medical attention for evaluation. I kept you at your current dosage of Citalopram which is the daily max amount and added Seroquel 25MG for at night. I would rather your be evaluated by psychiatry before initiating any new anti-depressant medications How can you care for yourself at home? ? Keep track of any new symptoms or changes in your symptoms. ? Rest until you feel better. ? Be safe with medicines. Take your medicines exactly as prescribed. Call your doctor if you think you are having a problem with your medicine. ? Do not drive after taking a prescription pain medicine. ? Ensure to follow-up with primary care physician as indicated and provide updated medication list provided to you at discharge. When should you call for help? Call 911 anytime you think you may need emergency care. For example, call if: ? You passed out (lost consciousness). Call your doctor now or seek immediate medical care if: ? You have new symptoms like fever, difficulty breathing, Chest pain, vomiting, or rash. ? You have new or different pain. ? You are confused and are having trouble thinking clearly. ? Your symptoms are getting worse. Watch closely for changes in your health, and be sure to contact your doctor if: ? You do not get better as expected. Patient Instructions: Antibiotic Form, Depression (DC), Help Prevent Suicide (DC), Help Prevent Suicide in Older Adults (DC), Suicide Prevention (DC), Depression in Older Adults (DC), Depression Management for Older Adults (DC) Patient Language: Croatian Stand Alone Forms: General Discharge Information Follow-up/Referrals: UNKNOWN,DOCTOR [Primary Care Provider] - Call for Appointment Discharge Medications: New quetiapine [Seroquel] 25 mg Tablet 25 mg PO HS Qty: 30 0RF tamsulosin 0.4 mg Capsule 0.4 mg PO QAM Qty: 30 0RF citalopram [Celexa] 20 mg Tablet 40 mg PO DAILY Qty: 60 0RF Continued niacin [Niaspan Extended-Release] 750 mg tablet extended release 24 hr 375 mg PO DAILY lansoprazole 30 mg capsule,delayed release(DR/EC) 303 mg PO DAILY rosuvastatin 10 mg tablet 10 mg PO DAILY fenofibrate 160 mg tablet 160 mg PO DAILY potassium citrate 15 mEq tablet extended release 15 meq PO DAILY saxagliptin-metformin [Kombiglyze XR] 5-1,000 mg tablet, ER multiphase 24 hr 1 tablet PO DAILY losartan 100 mg tablet 100 mg PO DAILY glimepiride 4 mg tablet 4 mg PO DAILY Fish Oil Capsule 1 cap PO BID ascorbate calcium (vitamin C) 500 mg Capsule 500 mg PO DAILY multivit with min-folic acid [Adult One Daily Multivitamin] 0.4 mg Tablet 1 tablet PO DAILY cholecalciferol (vitamin D3) 125 mcg (5,000 unit) Tablet 125 mcg PO DAILY Discontinued citalopram 20 mg tablet 20 mg PO DAILY prednisone 20 mg tablet 20 mg PO DAILY Date of admission: 02/02/24 12:46 Primary Care Provider: UNKNOWN,DOCTOR Admitting Provider: Tori Duncan Attending physician on admission: Teresa Yee Condition: Stable Quality VTE Prophylaxis VTE prophylaxis: mechanical ordered -Patient's previous records reviewed on admission -ER notes reviewed in detail on admission -discussed all findings and current treatment plan with patient/Family/POA -Consultations reviewed for recommendations -Patient's disposition for safe discharge discussed with business case analyst Dictation performed by [employer] direct speech recognition software, therefore merry go round operator variants and typographical errors may occur. Hospitalist MIPS Heart Failure (Exclusion) Patient has history of Heart Transplant or Left Ventricular Assistive Device?: No IF YES, STOP HERE Heart Failure (Qualifier) Patient has current or prior documentation of LVEF less than or equal to 40%, or mod/servere depressed LVSF?: No IF NO, STOP HERE
[2024-02-04 13:56] VITALS: BP 125/61; PULSE 114; RESP 18; TEMP 36.3; O2SAT 97
--- NOTE | 2024-02-04 14:31 | PC.NURSE ---
Patient DC'd, denies any suicidal/ homicidal thoughts at time of DC. Resources provided to patient and family regarding suicide, depression, mental health and provided help lines and discussed how to get help. Discussed [phone] with patient and family. No further questions at this time.
== END 2024-02-04 14:40 | disposition home or self-care (01) | DRG 881 ==
LOC: ANHED 12:57 → ANH3MEDSUR 13:23
PROVIDERS: Nurse Practitioner Acute Care; Physician Assistant; Admitting Provider Family Medicine; Emergency Provider Emergency Medicine; Visit Provider Nurse Practitioner Family
DX: F32.9 Major depressive disorder, single episode, unspecified (principal); R45.851 Suicidal ideations; J06.9 Acute upper respiratory infection, unspecified; F41.9 Anxiety disorder, unspecified; M19.90 Unspecified osteoarthritis, unspecified site; N40.1 Benign prostatic hyperplasia with lower urinary tract symptoms; R33.8 Other retention of urine; E78.5 Hyperlipidemia, unspecified; I10 Essential (primary) hypertension; E11.9 Type 2 diabetes mellitus without complications; M48.10 Ankylosing hyperostosis [Forestier], site unspecified; K21.9 Gastro-esophageal reflux disease without esophagitis; Z20.822 Contact with and (suspected) exposure to COVID-19
CPT/HCPCS: 36415; 36600; 70450; 71045; 74177; 80048; 80053; 80143; 80307; 81001; 81003; 82077; 82306; 82550; 82607; 82805; 82948; 83605; 83690; 83735; 83880; 84100; 84443; 84484; 85018; 85025; 85027; 85610; 85652; 85730; 86140; 86592; 86703; 87040; 87637; 93005; 96360; 96361; 96372; 99285; A9270; G0432; J1815; J3360; J7030; J7120; Q9967